=== PATIENT | female | born 1990 | race Caucasian/White ===

== ENCOUNTER 2019-02-12 21:28 | Emergency (ER) | payer OTHER ==
[2019-02-12 21:36] VITALS: BP 138/89; TEMP 99.2; BMI 38.1
--- NOTE | 2019-02-12 23:20 | ED.PDOC ---
General ED Provider: Dr. TALITA PORTER Chief Complaint: Fever Stated Complaint: Fever, body aches, chills, non-productive cough. Says also had these symptoms for 1 1/2 weeks and went away for few days. Time Seen by Physician: 21:40 Mode of Arrival: Walk-In Information Source: Patient Primary Care Provider: PINA PANDA Nursing and Triage Documentation Reviewed and Agree: Yes Does patient meet sepsis criteria?: No System Inflammatory Response Syndrome: Not Applicable Sepsis Protocol: For patient's 13 years and over: Temp is 96.8 and below OR 101 and greater Pulse >90 BPM Resp >20/minute Acutely Altered Mental Status Are patient's symptoms suggestive of a new infection, such as: -Pneumonia -Skin, Soft Tissue -Endocarditis -UTI -Bone, Joint Infection -Implantable Device -Acute Abdominal Infection -Wound Infection -Meningitis -Blood Stream Catheter Infection -Unknown Review of Systems - Review Of Systems Constitutional: Reports: Chills, Fever, Other (body aches ) Eyes: Reports: No symptoms Ears, Nose, Mouth, Throat: Reports: No symptoms Respiratory: Reports: Cough (non productive ) Cardiac: Reports: No symptoms GI: Reports: No symptoms : Reports: No symptoms Musculoskeletal: Reports: No symptoms Skin: Reports: No symptoms Neurological: Reports: No symptoms Endocrine: Reports: No symptoms Hematologic/Lymphatic: Reports: No symptoms All Other Systems: Reviewed and Negative Past Medical History - Past Medical History Previously Healthy: Yes Endocrine: Reports: None Cardiovascular: Reports: Hypertension Respiratory: Reports: None Hematological: Reports: None Gastrointestinal: Reports: None Genitourinary: Reports: None Neuro/Psych: Reports: None Musculoskeletal: Reports: None Cancer: Reports: None Last Menstrual Period: 3 weeks ago - Surgical History General Surgical History: Reports: - Family History Family History: Reports: Unknown - Social History Smoking Status: Never smoker Hx Substance Use: No Alcohol Screening: None - Immunizations Tetanus Shot up to Date: Yes Physical Exam - Physical Exam Appearance: Ill-appearing Ill-appearing: Mild Eyes: KEVIN, EOMI, Conjunctiva clear ENT: Ears normal, Nose normal, Oropharynx normal Neck: Supple Respiratory: Airway patent, Breath sounds clear, Breath sounds equal, Respirations nonlabored Cardiovascular: RRR, Pulses normal, No rub, No murmur GI/: Soft, Nontender, No masses, Bowel sounds normal, No Organomegaly Musculoskeletal: Normal strength, ROM intact, No edema, No calf tenderness Skin: Warm, Dry, Normal color Neurological: Sensation intact, Motor intact, Reflexes intact, Cranial nerves intact, Alert, Oriented Psychiatric: Affect appropriate, Mood appropriate Critical Care Note - Critical Care Note Total Time (mins): 0 Course - Course Orders, Labs, Meds: Lab Review 02/12/19 21:45 Influ A Molecular Assay Negative by naat Influ B Molecular Assay Negative by naat Orders Category Date Time Status FLU A/B MOLECULAR Stat LAB 02/12/19 21:45 Completed MOLECULAR GROUP A STREP Stat LAB 02/12/19 21:45 Completed Vital Signs: Temp Pulse Resp BP Pulse Ox 02/12/19 21:28 99.2 F 80 20 138/89 97 Departure - Departure Time of Disposition: 23:18 Disposition: HOME SELF-CARE Discharge Problem: Viral syndrome Instructions: Viral Syndrome (ED) Condition: Stable Pt referred to PMD for follow-up: Yes IPMP verified?: No Additional Instructions: Push fluids Follow up with PCP in 3 days Alternate Tylenol with Motrin as needed for fever Allergies/Adverse Reactions: Allergies No Known Allergies Allergy (Unverified 02/12/19 21:36) Home Medications: Ambulatory Orders Cetirizine HCl [Zyrtec] 10 mg PO BEDTIME 11/15/15 Losartan Potassium [Cozaar] 25 mg PO DAILY 02/12/19 Disposition Discussed With: Patient
== END 2019-02-12 23:30 | disposition home or self-care (01) ==
LOC: ED 21:28
DX: B34.9 Viral infection, unspecified (principal)
CPT/HCPCS: 87502; 87651; 99282